=== PATIENT | female | born 2000 | race Caucasian/White ===

== ENCOUNTER 2024-04-18 14:11 | Emergency (ER) | payer BC ==
[~2024-04-18] VITALS: Ht 160 cm; Wt 54.4 kg
[2024-04-18 14:28] VITALS: BP_SYST 132; PULSE 115; RESP 22; TEMP 100.1; O2SAT 98
[2024-04-18 15:52] LABS: EOSINOPHILS % (AUTO) 0.1 % (0.0-4.0); LYMPHOCYTES # (AUTO) 1.5 K/uL (1.0-5.5); MONOCYTES # (AUTO) 1.7 K/uL (0.0-1.0); NEUTROPHILS # (AUTO) 15.9 K/uL (1.8-7.7); WHITE BLOOD COUNT (AUTO) 19.2 K/uL (4.8-10.8)
[2024-04-18 16:05] LABS: BASOPHILS % (AUTO) 0.2 % (0.0-2.0); LYMPHOCYTES % (AUTO) 7.9 % (20.5-51.5); MEAN CORPUSCULAR HEMOGLOBIN 32 pg (27-31); MEAN CORPUSCULAR HGB CONC 35 % (32-36); MEAN CORPUSCULAR VOLUME 92 fL (79.0-98.0); NEUTROPHILS % (AUTO) 82.8 % (40.0-70.0); PLATELET COUNT (AUTO) 203 K/uL (130-430); RED BLOOD CELL COUNT(AUTO) 4.02 MIL/uL (4.2-6.2); RED CELL DISTRIBUTION WIDTH 13.1 % (9.0-15.0)
[2024-04-18 16:06] LABS: CALCIUM 8.6 mg/dL (8.4-11.0); CREATININE 0.83 mg/dL (0.55-1.30); POTASSIUM 3.8 mmol/L (3.5-5.1)
[2024-04-18] MEDS ORDERED: IBUP-1969 PO (16:20)
[2024-04-18] MEDS ORDERED: CIPR500T5 PO (16:20)
[2024-04-18] MEDS: cefTRIAXone 1 GM in LIDOCAINE 1%, 20 ML MDV 2.1 ML IM ONE (16:33)
[2024-04-18 16:37] VITALS: BP_SYST 132; PULSE 115; RESP 22; TEMP 100.1; O2SAT 98
[2024-04-18 16:42] LABS: BILIRUBIN,URINE NEGATIVE (NEGATIVE); BLOOD, URINE 3+ (NEGATIVE); COLOR,URINE YELLOW (YELLOW); GLUCOSE,URINE NEGATIVE (NEGATIVE); KETONES,URINE 1+ (NEGATIVE); LEUKOCYTE ESTERASE ,URINE NEGATIVE (NEGATIVE); NITRITE, URINE NEGATIVE (NEGATIVE); PROTEIN URINE NEGATIVE (NEGATIVE); UROBILINOGEN,URINE 0.2 (0.2-1.0)
[2024-04-18 17:30] LABS: BACTERIA,URINE FEW /HPF (None Seen); RBC,URINE 20-50 /HPF (0-3); WBC,URINE 0-3 /HPF (0-3)
[2024-04-18 17:31] LABS: CLARITY/URINE SLIGHTLY HAZY (CLEAR); MUCUS,URINE 1+ /LPF (None Seen)
== END 2024-04-18 16:43 | disposition home or self-care (01) ==
LOC: SED 14:11
DX: N12 Tubulo-interstitial nephritis, not specified as acute or chronic (principal); R10.9 Unspecified abdominal pain; R50.9 Fever, unspecified; Z88.0 Allergy status to penicillin
CPT/HCPCS: 99283; 80048; 81001; 85025; 87040; 36415; 81025; 96372; 83605; J0696; J2003; 81000; 81015